=== PATIENT | female | born 1995 | race Caucasian/White ===

== ENCOUNTER → 2025-07-19 09:52 | Outpatient (CLI) | payer OTHER, SELFPAY ==
[2025-07-19 10:59] LABS: Add Manual Diff / Slide Review NO; Hematocrit 39.0 % (36-46); Hemoglobin 13.0 g/dL (12.0-16.0); Lymphocytes Absolute Auto 1500 /uL (1100-4500); Mean Corpuscular HGB Conc 33.4 % (30-36); Mean Corpuscular Hemoglobin 30.7 PG (26-34); Mean Corpuscular Volume 92.0 fL (80-100); Platelet Count 266 X10^3/uL (150-400)
[2025-07-19 11:09] LABS: Hemoglobin A1C% w Est Avg Glu 5.1 % (4.0-6.0)
[2025-07-19 11:19] LABS: HEMOLYSIS < 15 (0-50); Iron 117 ug/dL (37-170)
[2025-07-19 11:23] LABS: Alanine Aminotransferase 12 IU/L (<35); Albumin 4.5 g/dL (3.5-5.0); Albumin Globulin Ratio 1.6 (1.0-2.8); Alkaline Phosphatase 44 U/L (38-126); Blood Urea Nitrogen 9 mg/dL (7-17); Calcium 9.3 mg/dL (8.4-10.2); Carbon Dioxide 26 mmol/L (22-32); Chloride 105 mmol/L (98-107); Estimated Glomerular Filt Rate > 60 mL/min (>60); Globulin 2.9 g/dL (1.7-4.1); Glucose 109 mg/dL (70-99); HEMOLYSIS < 15 (0-50); Potassium 4.4 mmol/L (3.4-5.1); Sodium 139 mmol/L (137-145); Total Protein 7.4 g/dL (6.3-8.2)
[2025-07-19 11:32] LABS: Percent Iron Saturation 34 % (15-50); Total Iron Binding Capacity 344 ug/dL (265-497); Transferrin 287 mg/dL (206-381)
[2025-07-19 11:37] LABS: Free T3, Triiodothyronine Free 3.66 pg/mL (2.77-5.27); Free T4, Direct Thyroxine 0.92 ng/dL (0.78-2.19)
[2025-07-19 11:51] LABS: Thyroid Stimulating Hormone 1.35 uIU/mL (0.47-4.68)
[2025-07-19 11:53] LABS: Ferritin 23 ng/mL (6-137)
[2025-07-19 12:27] LABS: Folate 9.0 ng/mL (2.76-20.0); Vitamin B12 861 pg/mL (239-931)
== END ==
PROVIDERS: PCP Student in an Organized Health Care Education/Training Program; Referring Provider Student in an Organized Health Care Education/Training Program; Visit Provider Student in an Organized Health Care Education/Training Program
DX: R23.3 Spontaneous ecchymoses (principal); R53.83 Other fatigue
CPT/HCPCS: 36415; 80053; 82607; 82728; 82746; 83036; 83540; 83550; 84439; 84443; 84481; 85025